=== PATIENT | male | born 1975 | race African-American/Black ===

== ENCOUNTER 2022-10-26 13:07 | Emergency (ER) | payer BC ==
[2022-10-26] MEDS ORDERED: EPINEPHrine 1MG/10ML SYRINGE 1.5IN ONE (13:08)
[2022-10-26 14:47] LABS: RSV AMPLIFICATION NEGATIVE (NEGATIVE)
== END 2022-10-26 15:52 | disposition expired ==
LOC: EDAGE 13:07 → EDBD 13:07 → M ED 13:07
DX: I46.9 Cardiac arrest, cause unspecified (principal)
CPT/HCPCS: 31500; 87631; 99284; J0171